=== PATIENT | male | born 2000 | race Caucasian/White ===

== ENCOUNTER 2021-04-07 15:37 | Emergency (ER) | payer OTHER ==
[2021-04-07] MEDS ORDERED: Ketorolac Tromethamine 30 MG/ML VIAL ONE (16:26)
[2021-04-07] MEDS ORDERED: Cyclobenzaprine 10 MG TAB ONE (17:13)
== END 2021-04-07 17:18 | disposition home or self-care (01) ==
LOC: CSHERS 15:37
DX: S13.9XXA Sprain of joints and ligaments of unspecified parts of neck, initial encounter (principal); M62.830 Muscle spasm of back; X50.9XXA Other and unspecified overexertion or strenuous movements or postures, initial encounter
CPT/HCPCS: 72125; 72128; 96372; J1885